=== PATIENT | male | born 1950 | race Caucasian/White ===

== ENCOUNTER 2022-12-28 21:42 | Emergency (ER) | payer BC | END 2022-12-28 22:45 | disposition home or self-care (01) | LOC: JD.ED 21:42 | DX: R33.9 Retention of urine, unspecified (principal) | CPT/HCPCS: 99282; 99283 ==

== ENCOUNTER 2022-12-29 10:02 | Emergency (ER) | payer BC ==
[2022-12-29] MEDS ORDERED: Sodium Chloride 0.9% 10 ML Syringe FLUSH PRN (10:30)
[2022-12-29 10:38] LABS: BASOPHILS ABSOLUTE AUTO 0.05 K/mm3 (0.01-0.08); BASOPHILS PERCENT AUTO 0.5 % (0.1-1.2); EOSINOPHILS ABSOLUTE AUTO 0.24 K/mm3 (0.04-0.54); EOSINOPHILS PERCENT AUTO 2.5 (0.8-7.0); HEMATOCRIT 38.6 % (40.1-51.0); HEMOGLOBIN 12.8 gm/dl (13.7-17.5); IMMATURE GRAN ABSOLUTE AUTO 0.02 K/mm3 (0.00-0.10); IMMATURE GRAN PERCENT AUTO 0.2 % (<=1.0); LYMPHOCYTES ABSOLUTE AUTO 1.44 K/mm3 (1.32-3.57); LYMPHOCYTES PERCENT AUTO 14.9 % (21.8-53.1); MEAN CORPUSCULAR HEMOGLOBIN 30.5 pg (25.7-32.2); MEAN CORPUSCULAR HGB CONC 33.2 g/dl (32.2-35.5); MEAN CORPUSCULAR VOLUME 92.1 fl (79.0-92.2); MEAN PLATELET VOLUME 9.5 fl (9.4-12.3); MONOCYTES ABSOLUTE AUTO 0.89 K/mm3 (0.30-0.82); MONOCYTES PERCENT AUTO 9.2 % (5.3-12.2); NEUTROPHILS ABSOLUTE AUTO 7.04 K/mm3 (1.78-5.38); NEUTROPHILS PERCENT AUTO 72.7 % (34.0-67.9); PLATELET COUNT,PLT 230 K/mm3 (163-337); RED BLOOD CELL COUNT 4.19 M/mm3 (4.63-6.08); WHITE BLOOD CELL COUNT,WBC 9.68 K/mm3 (4.23-9.07)
[2022-12-29 10:58] LABS: A/G RATIO 0.9 (1-2); ANION GAP 11.3 (5-15); BILIRUBIN TOTAL 0.3 mg/dL (0.2-1.0); BUN/CREATININE RATIO 41.3 (14-18); CALCIUM 8.1 mg/dL (8.5-10.1); CREATININE 0.8 mg/dL (0.7-1.3); EST CRCL DRUG DOSING (CG) 87.82 mL/min; POTASSIUM,K 3.3 mEq/L (3.5-5.1); PROTEIN TOTAL,TP 6.2 g/dl (6.4-8.2)
[2022-12-29 11:11] LABS: APPEARANCE,URINE SLT CLOUDY (Clear); BILIRUBIN,URINE NEGATIVE (Negative); COLOR,URINE YELLOW (Yellow); GLUCOSE,URINE NEGATIVE (Negative); KETONES,URINE TRACE (Negative); LEUKOCYTE ESTERASE,URINE TRACE (Negative); NITRITE,URINE NEGATIVE (Negative); OCCULT BLOOD,URINE 3+ (Negative); PH,URINE 5.5 (5.0-8.0); PROTEIN,URINE 1+ (Negative); UROBILINOGEN,URINE 0.2 (0.2-1.0)
[2022-12-29 11:29] LABS: BACTERIA,URINE MODERATE /hpf (FEW); MUCUS,URINE MANY /hpf (FEW); RBC,URINE 50-75 /hpf (0-5)
== END 2022-12-29 12:36 | disposition home or self-care (01) ==
LOC: JD.ED 10:02
DX: N39.0 Urinary tract infection, site not specified (principal)
CPT/HCPCS: 36415; 80053; 81001; 85025; 99284; J3490; 99283